=== PATIENT | male | born 1980 | race Caucasian/White ===

== ENCOUNTER 2017-02-07 22:37 | Inpatient (IN) | payer OTHER ==
[~2017-02-07] VITALS: Ht 188 cm; Wt 154.6 kg
[2017-02-07 22:40] VITALS: BP 148/71; PULSE 85; RESP 20; O2SAT 96
[2017-02-08] VITALS (12 sets, daily range): BP systolic 131–145; BP diastolic 51–83; PULSE 79–102; RESP 18–22; O2SAT 92–98
--- NOTE | 2017-02-08 00:50 | ED.REPORT ---
HPI-Dyspnea / Wheezing Date of Service Feb 08, 2017 ED Provider: Moiz Marrero MD A 36 year old male presents to the ED complaining of dyspnea that began 4 days ago. Associated symptoms include fever of 103 F, productive cough with white sputum, diarrhea, abdominal pain, and SOB. Patient reports over 30 episodes of diarrhea since onset. His symptoms have been constant since onset. He denies seasonal flu shot. Nursing Notes Stated Complaint: FEVER/COUGH/DIARRHEA Chief Complaint: Respiratory Distress Nursing Notes Reviewed: Yes Allergies: Coded Allergies: No Known Allergies (Unverified , 02/07/17) General Time Seen by MD: 00:26 Chief Complaint Other (Dyspnea) Hx Obtained From: Patient Arrived By: Walk-in Sudden in Onset?: No Onset Occurred: 4 days ago Symptom Duration: Since onset Location: : None Associated with: Reports: Cough, Fever Pertinent Negative: Pt denies other symptoms Recent Healthcare: No recent doctor visit, No recent hospitalization Past Medical History Past Medical History None reported. Past Surgical History None reported. Smoking History Never Smoker Social History Alcohol Use: Denies alcohol use Drug Use: THC Other Social History: Good social support, Local resident Ambulatory Status Independent Review of Systems Constitutional: Reports: Chills, Fever Respiratory: Reports: Prod cough, white, Shortness of breath Complete sys rev & neg: except as marked. GI: Reports: Abdominal pain, Diarrhea, Denies: Nausea, Vomiting Neurologic: Denies: Change LOC Physical Exam Initial Vital Signs Vital Signs (First) Date Time Temp Pulse Resp B/P Pulse Ox O2 Delivery O2 Flow Rate FiO2 02/07/17 22:40 38.6 85 20 148/71 96 Room Air Initial VS: Reviewed, Vital signs normal Extremities: Vascular intact, Neuro intact, No swelling, No tenderness Skin: Warm, Dry, No cyanosis Neurologic: Alert, Oriented, Nonfocal Psychiatric: Mood/affect normal, Behavior normal, Normal thought content General/Constitutional: Awake, Alert, No acute distress Appearance / Presentation: Positive: Obese Neck: Atraumatic, Supple Respiratory / Chest: Atraumatic Wheezing / Retractions: Positive: Wheeze insp/exp diffuse Rales / Rhonchi: Positive: Rhonchi diffuse RESPIRATORY/CHEST: Right lower rib tenderness Deep breaths with moderate cough Cardiovascular: Heart rate NL, Regular rhythm, Heart sounds NL CARDIO: No edema Abdomen: Atraumatic, Soft Interpretation & Diagnostics Lab Results Interpretation Result Diagram: 02/08/1710302/08/17 0104 Test 02/08/17 01:04 White Blood Count 3.6th/mm3 (3.8-10.1) Red Blood Count 4.77mil/mm3 (4.40-5.80) Hemoglobin 14.2g/dL (13.8-17.2) Hematocrit 39.7% (41.0-50.0) Mean Corpuscular Volume 83.2fL (81-100) Mean Corpuscular Hemoglobin 29.8pg (27.0-35.0) Mean Corpuscular Hemoglobin Concent 35.8% (32.0-37.0) Red Cell Distribution Width 12.5% (12.3-15.4) Platelet Count 171bil/L (150-400) Neutrophils (%) (Auto) 65.1% (40-74) Lymphocytes (%) (Auto) 22.5% (14-46) Monocytes (%) (Auto) 11.5% (4-12) Eosinophils (%) (Auto) 0% (0-5) Basophils (%) (Auto) 0.6% (0-3) Sodium Level 128mEq/L (134-144) Potassium Level 3.6mEq/L (3.5-5.2) Chloride Level 88mEq/L (97-108) Carbon Dioxide Level 23mmol/L (18-29) Blood Urea Nitrogen 12mg/dL (6-20) Creatinine 0.82mg/dL (0.76-1.27) Estimat Glomerular Filtration Rate 113mL/min (>59) Glucose Level 95mg/dL (60-99) Lactic Acid Level 0.9mmol/L (0.4-2.0) Calcium Level 8.1mg/dL (8.5-10.1) Magnesium Level 1.9mg/dL (1.6-2.6) Total Bilirubin 0.4mg/dL (0.0-1.2) Aspartate Amino Transf (AST/SGOT) 61U/L (0-50) Alanine Aminotransferase (ALT/SGPT) 38U/L (0-44) Alkaline Phosphatase 48U/L (25-150) Troponin T 0.010ug/L (0.0-0.011) Total Protein 7.0g/dL (6.4-8.4) Albumin 3.8g/dL (3.4-5.0) Lab values outside NL range: no clinical significance. Lab Results Interpretation: INFLUENZA: Negative A & B ECG Interpretation ECG Interpretation: Sinus Tachycardia Low voltage precordial leads Rate 102 Time: 01:35 Interpreted by: ED physician X-Ray Chest Interpretation Chest Xray Interpretation: IMPRESSION: Left Upper Lobe Pneumonia Interpretation / Wet Read by: Wet read ED physician Re-Eval/Medical Decision Med Decision/Clinical Course 36-year-old male with left upper lobe pneumonia and vomiting and diarrhea. He was started on antibiotics for community-acquired pneumonia. This case was discussed with Dr. Staton and he will be admitted to the hospitalist service. Re-Evaluation/Progress : Time of Eval: 03:19 Patient Status: Condition improved Re-Evaluation/Progress Note: Patient is rechecked. He is informed of his EKG results, X-ray results, lab results and diagnosis. All of the patient's questions are adressed. He understands and agrees with the treatment plan to admit. Consultation : Referral / Consult Name: Silvia Staton MD Consulted With: Hospitalist Call Returned at: 03:30 Urologist: Will see patient, Agrees with eval, Agrees with plan, Accepts admit Counseled Regarding: Diagnosis, Lab results, Need for admission Discharge & Departure Impression: Primary Impression: Pneumonia Pneumonia type: due to unspecified organism Laterality: left Lung location : upper lobe of lung Qualified Code: J18.9 - Pneumonia, unspecified organism Disposition: ADMITTED TO HOSPITAL Discharge Condition All VS Reviewed: Yes Condition: Stable Referrals: NOPCP (PCP) Derek Nair MD (Family) Jocelin Attestation Portions of this note were transcribed by Ghada Torres. I, Dr. Marrero personally performed the history, physical exam and medical decision-making; I reviewed and confirmed the accuracy of the information in the transcribed note. Signed by: Jocelin Krishna, 02/08/17 0400. copies to: Derek Nair MD, Moiz Pavon MD Feb 08, 2017 00:50 GHADA TORRES Feb 08, 2017 00:59
[2017-02-08] MEDS ORDERED: 0.9% Sodium Chloride 1,000 ML IV ONE (00:51)
[2017-02-08] MEDS ORDERED: MethylprednisoLONE Sodium Succinate 62.5 mg/mL 2 mL Inj IVPUSH ONE (00:55)
[2017-02-08] MEDS ORDERED: Albuterol 2.5 mg/3 mL Inhalation Solution NEB ONE (00:55)
[2017-02-08] MEDS ORDERED: Albuterol-Ipratropium 3 mL Inhalation Solution NEB ONE (00:55)
[2017-02-08 01:18] LABS: BASOPHILS % (AUTO) 0.6 % (0-3); EOSINOPHILS % (AUTO) 0 % (0-5); MONOCYTES % (AUTO) 11.5 % (4-12); Mean Corpuscular Hemoglobin 29.8 pg (27.0-35.0); Mean Corpuscular Volume 83.2 fL (81-100); NEUTROPHILS % (AUTO) 65.1 % (40-74); Platelet Count 171 bil/L (150-400)
[2017-02-08 01:49] LABS: TROPONIN T 0.01 ug/L (0.0-0.011)
[2017-02-08 01:55] LABS: Magnesium 1.9 mg/dL (1.6-2.6)
[2017-02-08] MEDS ORDERED: cefTRIAXone Inj 2,000 MG in Dextrose 5% Minibag Plus 50 ML IV ONE (03:25)
[2017-02-08] MEDS ORDERED: Azithromycin Inj 500 MG in Dextrose 5% w/Vial Mate 250 ML IV ONE (03:25)
[2017-02-08] MEDS ORDERED: Polyethylene Glycol (PEG) 17 Gm Powder PO PRN (04:05)
[2017-02-08] MEDS ORDERED: Ondansetron 2 mg/mL 2 mL Inj IVPUSH PRN (04:05)
[2017-02-08] MEDS ORDERED: Alum-Mag Hydrox-Simeth 30 mL Suspension PO PRN (04:05)
--- NOTE | 2017-02-08 04:23 | PCM.HPMED ---
Subjective Date of Service Feb 08, 2017 Primary Provider: Admitting Physician: Primary Care Physician: Arnoldo Attending Physician: Admit Status: From the Emergency Department, Full Admit, Remote Telemetry Chief Complaint: Cough, fevers chills, nausea vomiting diarrhea History of Present Illness: This is a 36-year-old male who 4 days ago developed cough nausea vomiting and diarrhea. He also had fevers and chills at home. He describes fever up to 103. He denies any abdominal pain. His evaluation in the emergency room includes a white count of 3.6 with 65% polys. Lactic acid is 0.9. His sodium is low at 128. Chest x-ray reveals a left upper lobe infiltrate. Patient was started on azithromycin by his primary care provider recently. EKG shows sinus tachycardia at a rate of 102. Review of Systems: Denies any urinary frequency or burning. All other review of systems are negative except for as in history of present illness. Allergies Coded Allergies: No Known Allergies (Unverified , 02/07/17) Home Medications Z-Royer PMH Morbid Obesity with BMI of 45.7 Social History Hx Alcohol Use: Yes (occasional) Hx Substance Use: Yes (marijuana) Smoking Status: Never Smoker Living Arrangement: with Family Exam Vital Signs Vital Sign - Last Date Time Temp Pulse Resp B/P Pulse Ox O2 Delivery O2 Flow Rate FiO2 02/08/17 03:57 39.1 95 18 131/51 92 Room Air Intake and Output 02/07/17 02/07/17 02/08/17 Cumulative From/Thru 15:00 23:00 07:00 02/07/17 22:40 - 02/08/17 03:58 Intake Total 1000 ml 1000 ml Balance 1000 ml 1000 ml Intake IV Total 1000 ml 1000 ml Exam Constitutional: Morbidly obese male in no acute distress Head: Normocephalic atraumatic Eyes: PERRLA DC EOMI Mouth: No lesions Neck: No adenopathy Chest: Reveals scattered expiratory wheezes Cor: Regular rate and rhythm S1-S2 Abdomen: Soft nontender bowel sounds present Extremities: No pedal edema Skin: No rashes Psych: Mood and affect are appropriate Neuro: Alert and oriented 3, motor strength is intact bilaterally Lab and Diagnostics Labs Laboratory Tests 72 Hours Test 02/08/17 01:04 White Blood Count 3.6th/mm3 (3.8-10.1) Red Blood Count 4.77mil/mm3 (4.40-5.80) Hemoglobin 14.2g/dL (13.8-17.2) Hematocrit 39.7% (41.0-50.0) Mean Corpuscular Volume 83.2fL (81-100) Mean Corpuscular Hemoglobin 29.8pg (27.0-35.0) Mean Corpuscular Hemoglobin Concent 35.8% (32.0-37.0) Red Cell Distribution Width 12.5% (12.3-15.4) Platelet Count 171bil/L (150-400) Neutrophils (%) (Auto) 65.1% (40-74) Lymphocytes (%) (Auto) 22.5% (14-46) Monocytes (%) (Auto) 11.5% (4-12) Eosinophils (%) (Auto) 0% (0-5) Basophils (%) (Auto) 0.6% (0-3) Sodium Level 128mEq/L (134-144) Potassium Level 3.6mEq/L (3.5-5.2) Chloride Level 88mEq/L (97-108) Carbon Dioxide Level 23mmol/L (18-29) Blood Urea Nitrogen 12mg/dL (6-20) Creatinine 0.82mg/dL (0.76-1.27) Estimat Glomerular Filtration Rate 113mL/min (>59) Glucose Level 95mg/dL (60-99) Lactic Acid Level 0.9mmol/L (0.4-2.0) Calcium Level 8.1mg/dL (8.5-10.1) Magnesium Level 1.9mg/dL (1.6-2.6) Total Bilirubin 0.4mg/dL (0.0-1.2) Aspartate Amino Transf (AST/SGOT) 61U/L (0-50) Alanine Aminotransferase (ALT/SGPT) 38U/L (0-44) Alkaline Phosphatase 48U/L (25-150) Troponin T 0.010ug/L (0.0-0.011) Total Protein 7.0g/dL (6.4-8.4) Albumin 3.8g/dL (3.4-5.0) Result Diagram: 02/08/1710302/08/17103 Assessment & Plan # Left upper lobe pneumonia, acute, present on admission, possible aspiration - Patient failed to by mouth azithromycin at home so will start on IV Levaquin along with IV Zosyn to cover for possibility of aspiration pneumonia - Check respiratory PCR, sputum culture and Gram stain, urine for legionella and strep pneumonia - Follow serial pro-calcitonin levels # Nausea vomiting diarrhea, acute, present on admission - Check GI PCR studies - Zofran when necessary nausea vomiting - Placed on enteric precautions #Sepsis, acute, present on admission - Possibly related to pneumonia and meets criteria by temperature greater than 38.3 WBCs less than 4000 and pulse greater than 90 - Lactic acid is normal at presentation # Morbid obesity, chronic, present on admission - Investment Banking Analyst regarding diet and weight loss - Check glucoses and hemoglobin A 1C # Hyponatremia, acute, present on admission - Most likely secondary to diarrhea and nausea vomiting so will give IV fluid repletion - Monitor daily electrolytes # DVT prophylaxis - SCDs and subcutaneous Lovenox # CODE STATUS Full code Time spent 60 minutes Silvia Staton MD Feb 08, 2017 04:23
[2017-02-08] MEDS: Piperacillin-Tazo 3.375 Gm Inj 3.375 GM in Dextrose 5% Minibag Plus 50 ML IV SCH ×3 (05:20→20:33)
[2017-02-08] MEDS: Albuterol 2.5 mg/3 mL Inhalation Solution NEB PRN ×2 (05:55→21:12)
--- NOTE | 2017-02-08 06:27 | NUR ---
Admit Admitted to 3029 from ED via stretcher. Able to ambulate on arrival. RA without c/o SOB @ rest but reports [place]. Frequent cough noted. Tele SR without c/o CP. Currently denies n/v but reports several days of n/v with last emesis on 02/07 around noon. Reports about 20-30 episodes of diarrhea per day over last several days with last BM on arrival to floor. Able to tolerate liquid intake at this time without any difficulties. IV ABO infusing per orders. No home medications per patient with no prior health hx. Droplet and enteric precautions initiated. Personal belongings at bedside per patient request. Oriented to call light use with return demonstration.
--- NOTE | 2017-02-08 07:42 | DRSVH ---
PROCEDURE: X-RAY CHEST, TWO VIEWS ([id number]) INDICATIONS: cough, left side rhonchi TECHNIQUE: 2 views of the chest were acquired. COMPARISON: None. FINDINGS: Surgical changes and devices: None. Lungs and pleura: Consolidative opacities are present within the inferior aspect of the left upper za ng. Mild patchy opacities are present at the left lung base. No pleural effusion or pneumothorax. A s mall pulmonary nodule is present at the right lung base. Mediastinum: Mediastinal contours are normal. Heart size is normal. Bones and chest wall: No suspicious bony abnormalities. Soft tissues appear unremarkable. IMPRESSION: 1. Findings suspicious for left multifocal pneumonia. Short interval followup is recommended to ensur e there is no underlying pulmonary neoplasm. 2. Right basilar pulmonary nodule. Short interval followup recommended. Dictated by: Mahi Rodriguez M.D. on 02/08/2017 at 7:39 Approved by: Mahi Rodriguez M.D. on 02/08/2017 at 7:40
[2017-02-08] MEDS ORDERED: 0.9% Sodium Chloride 250 ML ONE (08:31)
[2017-02-08] MEDS: Famotidine Inj 20 MG in IV Premix 1 EACH IV SCH ×2 (08:37→20:32)
[2017-02-08] MEDS: levoFLOXacin Inj 750 MG in IV Premix 1 EACH IV SCH (08:38)
--- NOTE | 2017-02-08 10:41 | PCM.PNMED ---
Subjective Date of Service Feb 08, 2017 Subjective - Pt seen and examined this morning. He is actively coughing with yellowish sputum production. - Also reports mild shortness of breath with is improving. - Denies any chest pain. Exam Vital Signs Vital Sign - Last Date Time Temp Pulse Resp B/P Pulse Ox O2 Delivery O2 Flow Rate FiO2 02/08/17 09:20 85 02/08/17 05:56 22 96 Room Air 02/08/17 04:46 37.5 132/66 Intake and Output 02/07/17 02/07/17 02/08/17 Cumulative From/Thru 15:00 23:00 07:00 02/07/17 22:40 - 02/08/17 06:00 Intake Total 1000 ml 1000 ml Balance 1000 ml 1000 ml Intake IV Total 1000 ml 1000 ml Exam Constitutional: Morbidly obese male in no acute distress Head: Normocephalic atraumatic Eyes: PERRLA DC EOMI Mouth: No lesions. Moist mucous membranes Neck: No adenopathy Chest: Reveals scattered expiratory wheezes, No rhonchi, Decrease breath sound at bilateral bases Cor: Regular rate and rhythm S1-S2 Abdomen: Soft nontender bowel sounds present, obese, no evidence of organomegaly. Extremities: No pedal edema Skin: No rashes Psych: Mood and affect are appropriate Neuro: Alert and oriented 3, motor strength is intact bilaterally IVs and Medications Medications Reviewed: Medications were reviewed in detail Lab and Diagnostics Result Diagram: 02/08/17 0104 02/08/17 0743 X-Rays, CTs and MRIs Chest X-ray: Lungs and pleura: Consolidative opacities are present within the inferior aspect of the left upper lung. Mild patchy opacities are present at the left lung base. No pleural effusion or pneumothorax. A small pulmonary nodule is present at the right lung base. Mediastinum: Mediastinal contours are normal. Heart size is normal. Bones and chest wall: No suspicious bony abnormalities. Soft tissues appear unremarkable. IMPRESSION: 1. Findings suspicious for left multifocal pneumonia. Short interval followup is recommended to ensure there is no underlying pulmonary neoplasm. 2. Right basilar pulmonary nodule. Short interval followup recommended. Assessment & Plan 36-year-old male who 4 days ago developed cough nausea vomiting and diarrhea. He also had fevers and chills at home. He describes fever up to 103. Admitted with impression of pneumonia. # Left upper lobe pneumonia, acute, present on admission, possible aspiration - Patient failed to by mouth azithromycin at home - Started on IV Levaquin and IV Zosyn Day # 2 - Airborne isolation, rule out TB - Check respiratory PCR, sputum culture and Gram stain, urine for legionella and strep pneumonia - Rapid flu test is negative - Procalcitonin mildly elevated. # Nausea vomiting diarrhea, acute, present on admission - Stool cultures pending - Zofran when necessary nausea vomiting - Placed on enteric precautions # Sepsis, acute, present on admission - Possibly related to pneumonia and meets criteria by temperature greater than 38.3 WBCs less than 4000 and pulse greater than 90 - Lactic acid is normal at presentation # Morbid obesity, chronic, present on admission - Surveillance Operator regarding diet and weight loss - Check glucoses and hemoglobin A 1C # Hyponatremia, acute, present on admission - Most likely secondary to diarrhea and nausea vomiting so will give IV fluid repletion - Na is improving 131 <--- 128 # DVT prophylaxis - SCDs and subcutaneous Lovenox # CODE STATUS Full code Steven Thornton MD Feb 08, 2017 10:41
--- NOTE | 2017-02-08 15:05 | NUR ---
Social Work Note: Screen Note Data & Assessment: EMR reviewed. Patient is a 36 year old male admitted on 02/08/2017 for left upper lobe pneumonia. Pt is self pay and sees no one for primary care. Pt lives in [place] with family and is independent at baseline. Pt is currently SBA in her room. No discharge needs identified at this time. SW to continue to follow if any needs arise. Plan: Anticipated discharge home via POV when medically ready. No discharge needs identified at this time. SW to continue to follow if any needs arise. Elsa Meza, HUA, ACM
[2017-02-09] VITALS (9 sets, daily range): BP systolic 130–158; BP diastolic 75–85; PULSE 78–96; RESP 16–20; O2SAT 95–99
[2017-02-09] MEDS: Piperacillin-Tazo 3.375 Gm Inj 3.375 GM in Dextrose 5% Minibag Plus 50 ML IV SCH ×2 (04:10→12:54)
--- NOTE | 2017-02-09 05:15 | NUR ---
Febrile: Pt had low grade temp, no medication administered, tolerating fine. Pt slept off/on throughout the night, pleasant and cooperative with care.
[2017-02-09 06:57] LABS: BASOPHILS % (AUTO) 1.2 % (0-3); EOSINOPHILS % (AUTO) 0 % (0-5); MONOCYTES % (AUTO) 20.7 % (4-12); Mean Corpuscular Hemoglobin 29.3 pg (27.0-35.0); Mean Corpuscular Volume 84.6 fL (81-100); NEUTROPHILS % (AUTO) 55.7 % (40-74); Platelet Count 218 bil/L (150-400)
[2017-02-09] MEDS: Famotidine Inj 20 MG in IV Premix 1 EACH IV SCH ×2 (09:17→20:52)
[2017-02-09] MEDS: levoFLOXacin Inj 750 MG in IV Premix 1 EACH IV SCH (09:18)
--- NOTE | 2017-02-09 10:16 | NUR ---
Social Work-readiness for discharge: Data:EMR reviewed. Pt is on day 1 of hospitalization for left upper lobe pneumonia per H&P. Pt is in isolation for r/o TB. Pt does not have a PCP or insurance. R[facility] to screen pt. SW provided pt with DPOA/ advanced directive paperwork, mikel care application, and healthcare exchanged information. Per RN notes, pt has been up independent in his room. No anticipated discharge needs. SW will continue to follow if needs arise. Assessment:Pt who is independent at baseline. Plan:Pt to discharge home when medically stable via POV. No anticipated discharge needs. SW will continue to follow if needs arise. ALONSO Gonzalez
--- NOTE | 2017-02-09 14:24 | PCM.PNMED ---
Subjective Date of Service Feb 09, 2017 Subjective Still coughing and having some shortness of breath, and ongoing diarrhea. No chest pain no nausea or vomiting Exam Vital Signs Vital Sign - Last Date Time Temp Pulse Resp B/P Pulse Ox O2 Delivery O2 Flow Rate FiO2 02/09/17 11:12 92 02/09/17 10:13 36.6 20 158/85 96 Room Air Intake and Output 02/08/17 02/08/17 02/09/17 Cumulative From/Thru 15:00 23:00 07:00 02/07/17 22:40 - 02/09/17 06:15 Intake Total 1794 ml 400 ml 3194 ml Output Total 4729 ml 550 ml 5279 ml Balance -2935 ml -150 ml -2085 ml Intake Oral 1794 ml 400 ml 2194 ml IV Total 1000 ml Output Urine Total 4725 ml 550 ml 5275 ml Stool Total 4 ml 4 ml Exam Constitutional: Morbidly obese male in no acute distress Head: Normocephalic atraumatic Eyes: Eyes open, conjunctiva clear, pupils equal eyes track symmetrically Neck: Trachea midline, neck supple Chest: Reveals scattered expiratory wheezes Cor: Regular rate and rhythm S1-S2, no murmur or gallop Abdomen: Soft nontender bowel sounds present, generous pannus Extremities: No pedal edema Skin: No rashes Psych: Mood and affect are appropriate Neuro: Alert and oriented 3, motor strength is intact bilaterally Lab and Diagnostics Result Diagram: 02/09/17 0635 02/09/17 0635 X-Rays, CTs and MRIs Chest X-ray: Lungs and pleura: Consolidative opacities are present within the inferior aspect of the left upper lung. Mild patchy opacities are present at the left lung base. No pleural effusion or pneumothorax. A small pulmonary nodule is present at the right lung base. Mediastinum: Mediastinal contours are normal. Heart size is normal. Bones and chest wall: No suspicious bony abnormalities. Soft tissues appear unremarkable. IMPRESSION: 1. Findings suspicious for left multifocal pneumonia. Short interval followup is recommended to ensure there is no underlying pulmonary neoplasm. 2. Right basilar pulmonary nodule. Short interval followup recommended. Assessment & Plan 36-year-old male who 4 days ago developed cough nausea vomiting and diarrhea. He also had fevers and chills at home. He describes fever up to 103. Admitted with impression of pneumonia. 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 difficile among other things - Zofran when necessary nausea vomiting - Placed on enteric precautions -Nausea and vomiting resolved 02/09 - Added Metamucil up to 3 times a day for diarrhea 02/09 #Transaminitis-likely [place] possibly alcohol related recommend outpatient follow- up no further workup for now. # Sepsis, acute, present on admission - Possibly related to pneumonia and meets criteria by temperature greater than 38.3 WBCs less than 4000 and pulse greater than 90 - Lactic acid is normal at presentation -Resolved 02/09 # Morbid obesity, chronic, present on admission - Industrial Rehabilitation Consultant regarding diet and weight loss - Check glucoses and hemoglobin A 1C # Hyponatremia, acute, present on admission - Most likely secondary to diarrhea and nausea vomiting so will give IV fluid repletion - Na is improving 131 <--- 128 -Resolved 02/09 likely dehydration # DVT prophylaxis - SCDs and subcutaneous Lovenox # CODE STATUS Full code Asif Rocha MD Feb 09, 2017 14:24
[2017-02-09] MEDS: Albuterol 2.5 mg/3 mL Inhalation Solution NEB PRN (16:43)
[2017-02-09] MEDS: Codeine-guaiFENesin 10 mL Syrup PO PRN (22:09)
[2017-02-10 00:18] VITALS: BP 125/75; PULSE 86; RESP 20; O2SAT 96
[2017-02-10 06:09] VITALS: BP 120/71; PULSE 93; RESP 20; O2SAT 96
--- NOTE | 2017-02-10 06:29 | NUR ---
Respiration Pt c/o intermittent cough,small white sputum, Codeine-Guaifenesin administered, cough slightly improved. Denies SOB. SPO2 96-97% on RA. Coarse lung sounds bilaterally, no crackles or wheezes noted. Tele: SR 90S. On droplet precaution.
[2017-02-10] MEDS: levoFLOXacin 750 mg Tablet PO SCH (08:33)
[2017-02-10] MEDS: Famotidine Inj 20 MG in IV Premix 1 EACH IV SCH ×2 (08:34→21:47)
[2017-02-10] MEDS: Codeine-guaiFENesin 10 mL Syrup PO PRN ×3 (08:34→21:48)
[2017-02-10] MEDS ORDERED: DiphenOXYlate-Atropine 2.5 mg-0.025 mg Tablet PO ONE (09:10)
[2017-02-10 09:40] VITALS: BP 114/64; PULSE 86; RESP 20; O2SAT 94
[2017-02-10 10:29] LABS: APPEARANCE,URINE CLEAR (CLEAR,HAZY); COLOR,URINE YELLOW (YELLOW)
[2017-02-10 10:30] LABS: OCCULT BLOOD,URINE NEGATIVE (NEGATIVE); PH,URINE 6.5 (5.0-8.0); UROBILINOGEN,URINE NORMAL (NORMAL)
--- NOTE | 2017-02-10 14:36 | NUR ---
Diarrhea, PO Intake Pt continues to have diarrhea. Medicated w/ lomotil as ordered. Pt requested to eat solid foods and was able to tolerate some crackers and a few bites of salad, otherwise continues with poor po intake.
--- NOTE | 2017-02-10 17:13 | PCM.PNMED ---
Subjective Date of Service Feb 10, 2017 Subjective Patient reports 20-25 episodes of diarrhea since we met yesterday. He cannot make it to the bathroom it suddenly and he is incontinent and has taken to wearing diapers. His breathing is okay his cough is better controlled and he does not have any chest pain or headache. Exam Vital Signs Vital Sign - Last Date Time Temp Pulse Resp B/P Pulse Ox O2 Delivery O2 Flow Rate FiO2 02/10/17 06:09 37.3 93 20 120/71 96 Room Air 02/09/17 16:43 8.00 Intake and Output 02/09/17 02/09/17 02/10/17 Cumulative From/Thru 15:00 23:00 07:00 02/07/17 22:40 - 02/10/17 06:46 Intake Total 1300 ml 956 ml 5450 ml Output Total 3 ml 660 ml 5942 ml Balance 1297 ml 296 ml -492 ml Intake Oral 1300 ml 800 ml 4294 ml IV Total 156 ml 1156 ml Output Urine Total 3 ml 650 ml 5928 ml Stool Total 10 ml 14 ml Exam Constitutional: Morbidly obese male in no acute distress Head: Normocephalic atraumatic Eyes: Eyes open, conjunctiva clear, pupils equal eyes track symmetrically Neck: Trachea midline, neck supple Chest: Breath sounds distant, CTA no wheezes or rhonchi auscultated Cor: Regular rate and rhythm S1-S2, no murmur or gallop Abdomen: Soft nontender bowel sounds present, generous pannus Extremities: No pedal edema Skin: No rashes Psych: Mood and affect are appropriate Neuro: Alert and oriented 3, motor strength is intact bilaterally Lab and Diagnostics Result Diagram: 02/09/1735 02/09/17 0635 X-Rays, CTs and MRIs Chest X-ray: Lungs and pleura: Consolidative opacities are present within the inferior aspect of the left upper lung. Mild patchy opacities are present at the left lung base. No pleural effusion or pneumothorax. A small pulmonary nodule is present at the right lung base. Mediastinum: Mediastinal contours are normal. Heart size is normal. Bones and chest wall: No suspicious bony abnormalities. Soft tissues appear unremarkable. IMPRESSION: 1. Findings suspicious for left multifocal pneumonia. Short interval followup is recommended to ensure there is no underlying pulmonary neoplasm. 2. Right basilar pulmonary nodule. Short interval followup recommended. Assessment & Plan 36-year-old male who 4 days ago developed cough nausea vomiting and diarrhea. He also had fevers and chills at home. He describes fever up to 103. Admitted with impression of pneumonia. 02/10 severe diarrhea as described above. Giving patient IV fluids, Metamucil and Lomotil he still may turn C. difficile positive after all the antibiotics we gave him so I will be vigilant of that and have discussed with him the potential downside of using anti-motility agents. Accu checks, telemetry were discontinued today #Severe diarrhea worsened since admission - Stool DNA completely negative no C. 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 # Sepsis, acute, present on admission - Possibly related to pneumonia and meets criteria by temperature greater than 38.3 WBCs less than 4000 and pulse greater than 90 - Lactic acid is normal at presentation -Resolved 02/09 # Morbid obesity, chronic, present on admission - Public Welfare Director regarding diet and weight loss - Check glucoses have been around 100 and hemoglobin A 1C 5.4 02/08 Accu-Cheks discontinued # Hyponatremia, acute, present on admission - Most likely secondary to diarrhea and nausea vomiting so will give IV fluid repletion - Na is improving 131 <--- 128 -Resolved 02/09 likely dehydration # DVT prophylaxis - SCDs and subcutaneous Lovenox # CODE STATUS Full code VTE Mechanical Devices: Intermittant Pneumatic CD Asif Rocha MD Feb 10, 2017 08:35
[2017-02-10 17:17] VITALS: BP 128/73; PULSE 87; RESP 20; O2SAT 96
[2017-02-10] MEDS: D5 0.9% NaCl + KCl 20 mEq/L 1,000 ML IV SCH (19:11)
[2017-02-10 20:33] VITALS: BP 130/68; PULSE 80; RESP 20; O2SAT 98
[2017-02-10] MEDS ORDERED: 0.9% Sodium Chloride 250 ML ONE (21:43)
[2017-02-10 23:46] VITALS: PULSE 90; RESP 20; O2SAT 98
[2017-02-11] MEDS: D5 0.9% NaCl + KCl 20 mEq/L 1,000 ML IV SCH ×4 (04:54→20:25)
[2017-02-11] MEDS: Codeine-guaiFENesin 10 mL Syrup PO PRN ×3 (05:01→19:43)
--- NOTE | 2017-02-11 05:08 | NUR ---
cough Pt having productive cough with cream colored sputum. Medicated pt with robitussin with codeine and tessalon shahriar for cough this shift. Call light within reach, frequent rounding.
[2017-02-11 06:06] VITALS: BP 121/77; PULSE 77; RESP 20; O2SAT 96
[2017-02-11 07:51] LABS: BASOPHILS % (AUTO) 2.2 % (0-3); EOSINOPHILS % (AUTO) 0.6 % (0-5); MONOCYTES % (AUTO) 11.5 % (4-12); Mean Corpuscular Hemoglobin 29.1 pg (27.0-35.0); Mean Corpuscular Volume 86.1 fL (81-100); NEUTROPHILS % (AUTO) 47.5 % (40-74); Platelet Count 167 bil/L (150-400)
[2017-02-11 08:23] LABS: Magnesium 2.3 mg/dL (1.6-2.6)
[2017-02-11] MEDS: levoFLOXacin 750 mg Tablet PO SCH (08:44)
[2017-02-11] MEDS: Famotidine Inj 20 MG in IV Premix 1 EACH IV SCH (08:44)
[2017-02-11 13:48] VITALS: BP 143/87; PULSE 76; RESP 20; O2SAT 96
--- NOTE | 2017-02-11 14:16 | PCM.PNMED ---
Subjective Date of Service Feb 11, 2017 Subjective Diarrhea is improving. Still having cough now bringing up sputum occasionally a little bit bloody. No chest pain, breathing is not too bad. No nausea or vomiting Exam Vital Signs Vital Sign - Last Date Time Temp Pulse Resp B/P Pulse Ox O2 Delivery O2 Flow Rate FiO2 02/11/17 13:48 36.6 76 20 143/87 96 Room Air 02/09/17 16:43 8.00 Intake and Output 02/10/17 02/10/17 02/11/17 Cumulative From/Thru 15:00 23:00 07:00 02/07/17 22:40 - 02/11/17 06:33 Intake Total 1277 ml 1403 ml 8130 ml Output Total 1004 ml 1726 ml 8672 ml Balance 273 ml -323 ml -542 ml Intake Oral 1137 ml 400 ml 5831 ml IV Total 140 ml 1003 ml 2299 ml Output Urine Total 1000 ml 1725 ml 8653 ml Stool Total 4 ml 1 ml 19 ml Exam Constitutional: Morbidly obese male in no acute distress Head: Normocephalic atraumatic Eyes: Eyes open, conjunctiva clear, pupils equal eyes track symmetrically Neck: Trachea midline, neck supple Chest: Left-sided wheezes/rhonchi moving good air s3 muscle use Cor: Regular rate and rhythm S1-S2, no murmur or gallop Abdomen: Soft nontender bowel sounds present, generous pannus Extremities: No pedal edema Skin: No rashes Psych: Mood and affect are appropriate Neuro: Alert and oriented 3, motor strength is intact bilaterally Lab and Diagnostics Result Diagram: 02/11/17 0716 02/11/17 0716 X-Rays, CTs and MRIs Chest X-ray: Lungs and pleura: Consolidative opacities are present within the inferior aspect of the left upper lung. Mild patchy opacities are present at the left lung base. No pleural effusion or pneumothorax. A small pulmonary nodule is present at the right lung base. Mediastinum: Mediastinal contours are normal. Heart size is normal. Bones and chest wall: No suspicious bony abnormalities. Soft tissues appear unremarkable. IMPRESSION: 1. Findings suspicious for left multifocal pneumonia. Short interval followup is recommended to ensure there is no underlying pulmonary neoplasm. 2. Right basilar pulmonary nodule. Short interval followup recommended. Assessment & Plan 36-year-old male who 4 days ago developed cough nausea vomiting and diarrhea. He also had fevers and chills at home. He describes fever up to 103. Admitted with impression of pneumonia. 02/10 severe diarrhea as described above. Giving patient IV fluids, Metamucil and Lomotil he still may turn C. difficile positive after all the antibiotics we gave him so I will be vigilant of that and have discussed with him the potential downside of using anti-motility agents. Accu checks, telemetry were discontinued today 02/11 still having diarrhea but stool is increasingly formed. No abdominal pain. Cough and breathing are okay. Urine output is improving now that he is on IV fluids. He may be able to be discharged 02/12. He will receive 5 days of high-dose Levaquin at that point in time. I have made him aware that he could still have C. difficile if his diarrhea does not resolve. Starting a probiotic today. #Severe diarrhea worsened since admission - Stool DNA completely negative no C. 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 # Sepsis, acute, present on admission - Possibly related to pneumonia and meets criteria by temperature greater than 38.3 WBCs less than 4000 and pulse greater than 90 - Lactic acid is normal at presentation -Resolved 02/09 # Morbid obesity, chronic, present on admission - Life Skills Coach regarding diet and weight loss - Check glucoses have been around 100 and hemoglobin A 1C 5.4 02/08 Accu-Cheks discontinued # Hyponatremia, acute, present on admission - Most likely secondary to diarrhea and nausea vomiting so will give IV fluid repletion - Na is improving 131 <--- 128 -Resolved 02/09 likely dehydration # DVT prophylaxis - SCDs and subcutaneous Lovenox # CODE STATUS Full code VTE Mechanical Devices: Intermittant Pneumatic CD Asif Rocha MD Feb 11, 2017 14:16
[2017-02-11] MEDS: DiphenOXYlate-Atropine 2.5 mg-0.025 mg Tablet PO PRN ×2 (15:07→21:15)
[2017-02-11] MEDS: Albuterol 2.5 mg/3 mL Inhalation Solution NEB PRN ×2 (15:09→19:57)
[2017-02-11 15:12] VITALS: PULSE 76; RESP 20; O2SAT 97
[2017-02-11 19:57] VITALS: PULSE 74; RESP 20; O2SAT 97
[2017-02-11 20:16] VITALS: BP 144/74; PULSE 90; RESP 18; O2SAT 93
[2017-02-12] MEDS: Codeine-guaiFENesin 10 mL Syrup PO PRN ×2 (00:05→12:11)
[2017-02-12] MEDS: Sodium Chloride LOK Flush 10 mL Syringe IVFLUSH SCH ×3 (00:05→15:49)
--- NOTE | 2017-02-12 04:56 | NUR ---
PT ACTIVITY/RESPIRATORY Pt has been up in room, tolerates activity independently. Pt did have shower tonight. Pt remains on RA, maintains adequate oxygenation. Pt continues to have cough, productive w/ creamy sputum, faint red streaks. PRN cough syrup, tessalon pearls and neb treatments administered. Continue to monitor.
[2017-02-12 05:21] VITALS: BP 127/78; PULSE 65; RESP 18; O2SAT 94
[2017-02-12] MEDS: levoFLOXacin 750 mg Tablet PO SCH (09:44)
[2017-02-12] MEDS: Albuterol 2.5 mg/3 mL Inhalation Solution NEB PRN ×2 (12:14→16:13)
[2017-02-12 12:15] VITALS: PULSE 75; RESP 18; O2SAT 96
[2017-02-12 14:16] VITALS: BP 143/78; PULSE 65; RESP 18; O2SAT 94
[2017-02-12 16:13] VITALS: PULSE 70; RESP 18; O2SAT 95
[2017-02-12 21:03] VITALS: BP 130/82; PULSE 64; RESP 18; O2SAT 97
[2017-02-13] MEDS: Sodium Chloride LOK Flush 10 mL Syringe IVFLUSH SCH ×3 (00:19→16:30)
--- NOTE | 2017-02-13 00:27 | PCM.PNMED ---
Subjective Date of Service Feb 13, 2017 Subjective Patient is still complaining of some respiratory problems. He is complaining of wheezing and shortness of breath and cough. He has no other new complaints. Exam Vital Signs Vital Sign - Last Date Time Temp Pulse Resp B/P Pulse Ox O2 Delivery O2 Flow Rate FiO2 02/12/17 21:03 36.6 64 18 130/82 97 Room Air 02/09/17 16:43 8.00 Intake and Output 02/12/17 02/12/17 02/13/17 Cumulative From/Thru 15:00 23:00 07:00 02/07/17 22:40 - 02/12/17 20:55 Intake Total 1400 ml 91145 ml Output Total 1200 ml 95174 ml Balance 200 ml -98 ml Intake Oral 1400 ml 94631 ml IV Total 4418 ml Output Urine Total 1200 ml 76974 ml Stool Total 19 ml # Voids 1 # Bowel Movements 1 Exam General: Patient is in no apparent distress HEENT: Head is atraumatic and normocephalic. Eyes: Pupils are equally round and reactive to light and accommodation. Extraocular muscles are intact. Sclera are white, anicteric. Subconjunctival mucosa is pink. Ears and nose are unremarkable. Oropharynx: There is no mucosal lesions, there is no thrush, there is no pharyngitis. Neck: Is supple, there are no nodes, or masses or tenderness. Chest: Is significant for bilateral wheezing and basilar crackles. There are no rubs or rhonchi noted Heart: Rate, rhythm is regular. There is no murmur, rub or gallop. Abdomen: Good bowel sounds are present. Abdomen is obese, soft, nontender, no organomegaly or masses were appreciated. Extremities: Are symmetrical and well perfused. There is no edema, there is no cellulitis, no rash. Neurologic: There are no focal neurological deficits. Cranial nerves II through XII are intact. There are no sensory or motor deficits. Psychiatric: Patients mood is calm and shows no sign of agitation. Genital: Deferred Rectal: Deferred Lab and Diagnostics Result Diagram: 02/11/1771502/11/17715 Microbiology Microbiology ADENOVIRUS RESPIRATORY PCR Final 02/08/17-1419 Organism 1 ADENOVIRUS ADENOVIRUS RESP PCR DETECTED TIME CALLED: 1415 DATE CALLED: 02/08/17 FLOOR/DOCTOR: AL/BO Fabian CALLED BY: VS X-Rays, CTs and MRIs PROCEDURE: X-RAY CHEST, TWO VIEWS ([id number]) INDICATIONS: cough, left side rhonchi TECHNIQUE: 2 views of the chest were acquired. COMPARISON: None. FINDINGS: Surgical changes and devices: None. Lungs and pleura: Consolidative opacities are present within the inferior aspect of the left upper lung. Mild patchy opacities are present at the left lung base. No pleural effusion or pneumothorax. A small pulmonary nodule is present at the right lung base. Mediastinum: Mediastinal contours are normal. Heart size is normal. Bones and chest wall: No suspicious bony abnormalities. Soft tissues appear unremarkable. IMPRESSION: 1. Findings suspicious for left multifocal pneumonia. Short interval followup is recommended to ensure there is no underlying pulmonary neoplasm. 2. Right basilar pulmonary nodule. Short interval followup recommended. Dictated by: Mahi Rodriguez M.D. on 02/08/2017 at 7:39 Approved by: Mahi Rodriguez M.D. on 02/08/2017 at 7:40 Assessment & Plan 36-year-old male who 4 days ago developed cough nausea vomiting and diarrhea. He also had fevers and chills at home. He describes fever up to 103. Admitted with impression of pneumonia. 02/10 severe diarrhea as described above. Giving patient IV fluids, Metamucil and Lomotil he still may turn C. difficile positive after all the antibiotics we gave him so I will be vigilant of that and have discussed with him the potential downside of using anti-motility agents. Accu checks, telemetry were discontinued today 02/11 still having diarrhea but stool is increasingly formed. No abdominal pain. Cough and breathing are okay. Urine output is improving now that he is on IV fluids. #Severe diarrhea worsened since admission - Stool DNA completely negative no C. difficile among other things - Added Metamucil up to 3 times a day for diarrhea 02/09 -Lomotil 02/10 -IV fluids 02/10 -Improving # Left upper lobe pneumonia, acute, present on admission, - Patient failed to by mouth azithromycin at home - Started on IV Levaquin and IV Zosyn Day # 2 stopped 09/11 continuing by mouth Levaquin - Airborne isolation discontinued - respiratory PCR positive only for adeno virus, sputum culture and Gram stain pending, - Rapid flu test is negative - We will repeat chest x-ray in a.m. I am concerned about pulmonary nodules may consider CT scan of the chest depending on repeat chest x-ray findings. # Nausea vomiting, present on admission - Zofran when necessary nausea vomiting - Placed on enteric precautions -Nausea and vomiting resolved 02/09 # Transaminitis-likely [place] possibly alcohol related recommend outpatient follow -up no further workup for now. # Sepsis, acute, present on admission - Possibly related to pneumonia and meets criteria by temperature greater than 38.3 WBCs less than 4000 and pulse greater than 90 - Lactic acid is normal at presentation - Resolved 02/09 # Morbid obesity, chronic, present on admission - Trimmer Tailer regarding diet and weight loss - Check glucoses have been around 100 and hemoglobin A 1C 5.4 02/08 Accu-Cheks discontinued # Hyponatremia, acute, present on admission - Most likely secondary to diarrhea and nausea vomiting so will give IV fluid repletion - Na is improving 131 <--- 128 - Resolved 02/09 likely dehydration # DVT prophylaxis - SCDs and subcutaneous Lovenox # CODE STATUS Full code Pain Evaluation: Adequate Pain Control GI Prophylaxis: H2 amalia VTE Prophylaxis: Sub-Q Enoxaparin VTE Mechanical Devices: Intermittant Pneumatic CD Resuscitation Status: CPR: Attempt Resuscitation Rickey Lucas MD Feb 13, 2017 00:27
[2017-02-13 05:45] VITALS: PULSE 64; RESP 18; O2SAT 97
[2017-02-13 06:29] VITALS: BP 132/78; PULSE 65; RESP 18; O2SAT 97
--- NOTE | 2017-02-13 06:29 | NUR ---
Appetite / BM indicates appetite has returned, last BM still partially diarrhea without the urgency noted before that required wearing a brief.
[2017-02-13 07:14] LABS: BASOPHILS % (AUTO) 0.8 % (0-3); EOSINOPHILS % (AUTO) 5.1 % (0-5); MONOCYTES % (AUTO) 13.9 % (4-12); Mean Corpuscular Hemoglobin 29.6 pg (27.0-35.0); NEUTROPHILS % (AUTO) 53.9 % (40-74); Platelet Count 249 bil/L (150-400)
[2017-02-13 07:45] LABS: Magnesium 2.2 mg/dL (1.6-2.6)
[2017-02-13] MEDS: levoFLOXacin 750 mg Tablet PO SCH (09:13)
[2017-02-13 09:37] VITALS: PULSE 67; RESP 20; O2SAT 98
--- NOTE | 2017-02-13 10:30 | DRSVH ---
PROCEDURE: X-RAY CHEST, TWO VIEWS ([id number]) INDICATIONS: Follow up for Pneumlnia/Pulmonary nodules TECHNIQUE: 2 views of the chest were acquired. COMPARISON: [facility], CR, XR CHEST 2VW, 02/08/2017, 1:21. FINDINGS: Surgical changes and devices: None. Lungs and pleura: Persistent airspace opacity within the mid left lung and left lung base not signifi cantly changed. Lungs otherwise are clear. Mediastinum: Mediastinal contours are normal. Heart size is normal. Bones and chest wall: No suspicious bony abnormalities. Soft tissues appear unremarkable. IMPRESSION: Persistent multifocal opacities in the left lung not significantly changed. Underlying n eoplasm cannot be excluded and noncontrast chest CT scan is recommended. Dr. Lucas given results at 0905 hrs. 02/13/2017. Dictated by: Tad Schulte [facility] Interpreted: Flor Arreaga MD on 02/13/2017 at 10:28 Transcribed by: MACIEL on 02/13/2017 at 10:30 Approved by: Flor Arreaga MD, PhD on 02/13/2017 at 16:57
[2017-02-13 14:11] VITALS: BP 132/79; PULSE 76; RESP 20; O2SAT 97
--- NOTE | 2017-02-13 14:40 | DRSVH ---
PROCEDURE: CT CHEST WITHOUT CONTRAST ([id number]) INDICATIONS: Possible SHERYL Mass TECHNIQUE: Noncontrast 5 mm thick sections acquired from the pulmonary apices to the posterior costophrenic angl es. 7 mm thick coronal and sagittal MIP reformats were then acquired. For radiation dose reduction, the following was used: automated exposure control, adjustment of mA and/or kV according to patient size. COMPARISON: None. FINDINGS: Image quality: Excellent. Lungs and pleura: There is rounded air space density within the left upper lobe posterolaterally span rosy roughly 72 mm. Moderate patchy air space opacity within the left lower lobe is present. Mild pat cedric airspace opacity within the right middle lobe posteriorly is present.. No pleural effusions or p neumothorax. Central and peripheral airways are patent and normal in caliber. Mediastinum: Heart size is normal. No pericardial effusion. No mediastinal adenopathy by size crit eria. Thoracic aorta and central pulmonary arteries are normal in size. Esophagus is normal in [place]. No hiatal hernia. Bones and chest wall: No suspicious bony lesions. No vertebral body compression fractures. No axil jeniffer or supraclavicular adenopathy by size criteria. Thyroid gland is within normal limits on noncon trast imaging. Abdomen: Visualized upper abdominal solid organs and bowel loops appear normal in the absence of con trast. IMPRESSION: 1. Multifocal left lung pneumonia, as seen by plain film examination. Continued plain film surveillan ce is recommended to ensure resolution, and to exclude underlying malignancy. Dictated by: Bill Plascencia M.D. on 02/13/2017 at 14:38 Approved by: Bill Plascencia M.D. on 02/13/2017 at 14:39
--- NOTE | 2017-02-13 14:50 | NUR ---
Social Work: Continued d/c planning Data: Pt is on day 5 of hospitalization. EMR reviewed. Pt discussed in rounds. MD states pt likely to d/c in 1-2 days. Pt to have chest CT done today. Likely no d/c planning needs at this time. KENNEL KEEPER will continue to follow. Assessment: Pt who is independent at baseline. Plan: Pt will d/c home via POV when medically stable, likely in 1-2 days per MD. Likely no d/c planning needs at this time. KENNEL KEEPER will continue to follow. ALONSO Callejas
--- NOTE | 2017-02-13 18:47 | NUR ---
Cough/Lungs Patient continues to have a productive cough. Sputum flecked with red. Lung sounds diminished. Crackles in Lt base with expiratory wheeze. Patient reporting "feeling much better".
[2017-02-13 20:55] VITALS: BP 143/82; PULSE 72; RESP 20; O2SAT 97
--- NOTE | 2017-02-13 21:45 | PCM.PNMED ---
Subjective Date of Service Feb 13, 2017 Subjective Patient is feeling a little bit better today. He has no other new complaints. He still feels discomfort in his left upper chest and is still coughing. Exam Vital Signs Vital Sign - Last Date Time Temp Pulse Resp B/P Pulse Ox O2 Delivery O2 Flow Rate FiO2 02/13/17 20:55 36.9 72 20 143/82 97 Room Air 02/09/17 16:43 8.00 Intake and Output 02/12/17 02/12/17 02/13/17 Cumulative From/Thru 15:00 23:00 07:00 02/07/17 22:40 - 02/12/17 20:55 Intake Total 1400 ml 21496 ml Output Total 1200 ml 24702 ml Balance 200 ml -98 ml Intake Oral 1400 ml 30692 ml IV Total 4418 ml Output Urine Total 1200 ml 67104 ml Stool Total 19 ml # Voids 1 # Bowel Movements 1 Exam General: Patient is in no apparent distress HEENT: Head is atraumatic and normocephalic. Eyes: Pupils are equally round and reactive to light and accommodation. Extraocular muscles are intact. Sclera are white, anicteric. Subconjunctival mucosa is pink. Ears and nose are unremarkable. Oropharynx: There is no mucosal lesions, there is no thrush, there is no pharyngitis. Neck: Is supple, there are no nodes, or masses or tenderness. Chest: Is significant for wheezing and crackles. There are no rubs or rhonchi noted Heart: Rate, rhythm is regular. There is no murmur, rub or gallop. Abdomen: Good bowel sounds are present. Abdomen is obese, soft, nontender, no organomegaly or masses were appreciated. Extremities: Are symmetrical and well perfused. There is no edema, there is no cellulitis, no rash. Neurologic: There are no focal neurological deficits. Cranial nerves II through XII are intact. There are no sensory or motor deficits. Psychiatric: Patients mood is calm and shows no sign of agitation. Genital: Deferred Rectal: Deferred Lab and Diagnostics Result Diagram: 02/13/17 0654 02/13/17 0654 Microbiology Microbiology [facility] RESP[facility]AT[facility] PCR Final 02/08/17-1419 Organism 1 AD[facility]US [facility] RESP PCR DETECTED TIME CALLED: 1415 DATE CALLED: 02/08/17 FLOOR/DOCTOR: AL/BO Fabian CALLED BY: VS X-Rays, CTs and MRIs PROCEDURE: X-RAY CHEST, TWO VIEWS ([id number]) INDICATIONS: cough, left side rhonchi TECHNIQUE: 2 views of the chest were acquired. COMPARISON: None. FINDINGS: Surgical changes and devices: None. Lungs and pleura: Consolidative opacities are present within the inferior aspect of the left upper lung. Mild patchy opacities are present at the left lung base. No pleural effusion or pneumothorax. A small pulmonary nodule is present at the right lung base. Mediastinum: Mediastinal contours are normal. Heart size is normal. Bones and chest wall: No suspicious bony abnormalities. Soft tissues appear unremarkable. IMPRESSION: 1. Findings suspicious for left multifocal pneumonia. Short interval followup is recommended to ensure there is no underlying pulmonary neoplasm. 2. Right basilar pulmonary nodule. Short interval followup recommended. Dictated by: Mahi Rodriguez M.D. on 02/08/2017 at 7:39 Approved by: Mahi Rodriguez M.D. on 02/08/2017 at 7:40 Assessment & Plan The patient is a 36-year-old male who 4 days prior to admission developed cough , nausea vomiting and diarrhea. He also had fevers and chills at home. He described fever up to 103. Admitted with impression of pneumonia. and severe diarrhea as described above. #Severe diarrhea worsened since admission - Stool DNA completely negative no C. difficile among other things - Added Metamucil up to 3 times a day for diarrhea 02/09 - Lomotil added on 02/10 when necessary - IV fluids started on 02/10 - Improving # Left upper lobe pneumonia, acute, present on admission, - Patient failed to by mouth azithromycin at home - Started on IV Levaquin and IV Zosyn Day # 2 stopped 09/11. Patient is now continuing by mouth Levaquin and feels better overall. - Airborne isolation discontinued - The respiratory PCR positive only for adeno virus, sputum culture and Gram stain pending, - Rapid flu test is negative - A repeat chest x-ray this morning showed no improvement in the left upper lobe infiltrate and CT scan of the chest was recommended by the radiologist. CT findings are as follows: "Multifocal left lung pneumonia, as seen by plain film examination. Continued plain film surveillance is recommended to ensure resolution, and to exclude underlying malignancy". # Nausea vomiting, present on admission - Zofran when necessary nausea vomiting - Placed on enteric precautions - Nausea and vomiting resolved 02/09 # Transaminitis-likely [place] possibly alcohol related recommend outpatient follow -up no further workup for now. # Sepsis, acute, present on admission - Possibly related to pneumonia and meets criteria by temperature greater than 38.3 WBCs less than 4000 and pulse greater than 90 - Lactic acid is normal at presentation - Resolved 02/09 # Morbid obesity, chronic, present on admission - Agent Broker regarding diet and weight loss - Check glucoses have been around 100 and hemoglobin A 1C 5.4 02/08 Accu-Cheks discontinued # Hyponatremia, acute, present on admission - Most likely secondary to diarrhea and nausea vomiting so will give IV fluid repletion - Na is improving 131 <--- 128 - Resolved 02/09 likely dehydration # DVT prophylaxis - SCDs and subcutaneous Lovenox # CODE STATUS Full code Disposition: Suspect patient may be able to be discharged in next 24-48 hours. Pain Evaluation: Adequate Pain Control GI Prophylaxis: H2 amalia VTE Prophylaxis: Sub-Q Enoxaparin VTE Mechanical Devices: Intermittant Pneumatic CD Resuscitation Status: CPR: Attempt Resuscitation Rickey Lucas MD Feb 13, 2017 21:45
--- NOTE | 2017-02-14 00:09 | NUR ---
IV access IV was D/C'd by patient who is requesting we leave it out. Paged MD with request.
[2017-02-14] MEDS: Sodium Chloride LOK Flush 10 mL Syringe IVFLUSH SCH ×2 (00:10→08:18)
[2017-02-14 04:37] VITALS: BP 149/87; PULSE 64; RESP 20; O2SAT 96
[2017-02-14 06:20] LABS: BASOPHILS % (AUTO) 1.1 % (0-3); MONOCYTES % (AUTO) 11.6 % (4-12); Mean Corpuscular Hemoglobin 29.3 pg (27.0-35.0); Mean Corpuscular Volume 85.9 fL (81-100); Platelet Count 318 bil/L (150-400)
[2017-02-14 06:38] LABS: Magnesium 2.2 mg/dL (1.6-2.6)
[2017-02-14 07:40] LABS: ERYTHROCYTE SEDIMENTATION RATE 34 mm/hr (0-15)
[2017-02-14 07:48] VITALS: PULSE 57; RESP 18; O2SAT 97
[2017-02-14] MEDS: Albuterol 2.5 mg/3 mL Inhalation Solution NEB PRN (07:48)
[2017-02-14] MEDS: levoFLOXacin 750 mg Tablet PO SCH (08:18)
--- NOTE | 2017-02-14 11:44 | PCM.DIMED ---
Discharge Instructions Date of Service Feb 14, 2017 Dates of Hospitalization Feb 08, 2017 at 04:26 Discharge Diagnosis Discharge Diagnosis Adenovirus with Left Upper Lobe Bacterial Pneumonia and Gastroenteritis Diet No restrictions Activity No restrictions Call your provider Fever or Chills, Shortness of breath, Bleeding, Chest pain, Vomitting, Excessive diarrhea, Weakness (unilateral) Patient Instructions Follow-up Provider: [facility] Follow-up with PCP in: 2 weeks (F) Rickey Lucas MD Feb 14, 2017 11:44
[2017-02-14] MEDS ORDERED: LEVO750T9 PO (11:47)
[2017-02-14] MEDS ORDERED: Lactobacillus Acidophilus PO (11:47)
[2017-02-14] MEDS ORDERED: BENZ100C8 PO (11:47)
--- NOTE | 2017-02-14 11:53 | NUR ---
Social Work: Discharge Data: Pt is on day 6 of hospitalization. EMR reviewed. D/C orders are in. No d/c planning needs at this time. GRINDER CHIPPER will continue to follow if needs arise. Assessment: Pt who is independent at baseline. Plan: Pt will d/c home via POV today. No d/c planning needs at this time. GRINDER CHIPPER will continue to follow if needs arise. ALONSO Callejas
--- NOTE | 2017-02-14 12:50 | NUR ---
Discharge Patient ambulated from unit, accompanied by family. Patient alert and oriented. Patient denied chest discomfort, shortness of breath, nausea, abdominal discomfort or pain. Patient reporting continued productive cough, but felling "so much better". Oxygen saturation, nutritional intake and out put adequate. Discharge instructions/medications reviewed with patient prior to discharge. All questions addressed. Discharge instructions and patient belongings in hand. Prescription in hand, and electronically transmitted to [facility] Farah in [place].
--- NOTE | 2017-02-14 22:57 | PCM.DC.MED ---
Discharge Summary Date of Service Feb 14, 2017 Dates of Hospitalization Date of Hospital Admission Feb 08, 2017 at 04:26 Date of Discharge: Feb 14, 2017 Providers: Admitting Physician: Slivia Staton MD Primary Care Physician: Arnoldo Attending Physician: Silvia Staton MD Diagnosis at Time of Discharge Diagnosis at Time of Discharge Adenovirus with Left Upper Lobe Bacterial Pneumonia and Gastroenteritis Procedures XRay, CTs & MRIs PROCEDURE: X-RAY CHEST, TWO VIEWS ([id number]) INDICATIONS: cough, left side rhonchi TECHNIQUE: 2 views of the chest were acquired. COMPARISON: None. FINDINGS: Surgical changes and devices: None. Lungs and pleura: Consolidative opacities are present within the inferior aspect of the left upper lung. Mild patchy opacities are present at the left lung base. No pleural effusion or pneumothorax. A small pulmonary nodule is present at the right lung base. Mediastinum: Mediastinal contours are normal. Heart size is normal. Bones and chest wall: No suspicious bony abnormalities. Soft tissues appear unremarkable. IMPRESSION: 1. Findings suspicious for left multifocal pneumonia. Short interval followup is recommended to ensure there is no underlying pulmonary neoplasm. 2. Right basilar pulmonary nodule. Short interval followup recommended. Dictated by: Mahi Rodriguez M.D. on 02/08/2017 at 7:39 Approved by: Mahi Rodriguez M.D. on 02/08/2017 at 7:40 Brief History This is a 36-year-old male who 4 days ago developed cough nausea vomiting and diarrhea. He also had fevers and chills at home. He describes fever up to 103. He denies any abdominal pain. His evaluation in the emergency room includes a white count of 3.6 with 65% polys. Lactic acid is 0.9. His sodium is low at 128. Chest x-ray reveals a left upper lobe infiltrate. Patient was started on azithromycin by his primary care provider recently. EKG shows sinus tachycardia at a rate of 102. Patient was admitted to the hospital service for further evaluation and treatment. Hospital Course The patient is a 36-year-old male who 4 days prior to admission developed cough , nausea vomiting and diarrhea. He also had fevers and chills at home. He described fever up to 103. Admitted with impression of pneumonia. and severe diarrhea as described above. Patient was admitted to the hospitalist service for further evaluation and treatment. #Severe diarrhea worsened initially after admission and has now improved. - Stool DNA completely negative no C. difficile among other things - Added Metamucil up to 3 times a day for diarrhea 02/09 - Lomotil added on 02/10 when necessary - IV fluids started on 02/10 - Improving # Left upper lobe pneumonia, acute, present on admission, - Patient failed to by mouth azithromycin at home - Started on IV Levaquin and IV Zosyn Day # 2 stopped 09/11. Patient is now continuing by mouth Levaquin and feels better overall. - Airborne isolation discontinued - The respiratory PCR positive only for adeno virus, sputum culture and Gram stain were unremarkable, - Rapid flu test is negative - A repeat chest x-ray this morning showed no improvement in the left upper lobe infiltrate and CT scan of the chest was recommended by the radiologist. CT findings are as follows: "Multifocal left lung pneumonia, as seen by plain film examination. Continued plain film surveillance is recommended to ensure resolution, and to exclude underlying malignancy". # Nausea vomiting, present on admission - Zofran when necessary nausea vomiting - Placed on enteric precautions - Nausea and vomiting resolved 02/09 # Transaminitis-likely [place] possibly alcohol related recommend outpatient follow -up no further workup for now. # Sepsis, acute, present on admission - Possibly related to pneumonia and meets criteria by temperature greater than 38.3 WBCs less than 4000 and pulse greater than 90 - Lactic acid is normal at presentation - Resolved 02/09 # Morbid obesity, chronic, present on admission - Pit Hoist Operator regarding diet and weight loss - Check glucoses have been around 100 and hemoglobin A 1C 5.4 02/08 Accu-Cheks discontinued # Hyponatremia, acute, present on admission now resolved - Most likely secondary to diarrhea and nausea vomiting so will give IV fluid repletion - Na is improving 138 <--- 128 - Resolved and likely contrary to dehydration. # DVT prophylaxis - SCDs and subcutaneous Lovenox # CODE STATUS Full code Disposition: Patient is feeling much better today and will be discharged home today. Exam Vital Signs (Last) Date Time Temp Pulse Resp B/P Pulse Ox O2 Delivery O2 Flow Rate FiO2 02/14/17 07:48 57 18 97 Room Air 02/14/17 04:37 36.4 149/87 02/09/17 16:43 8.00 Exam General: Patient is in no apparent distress HEENT: Head is atraumatic and normocephalic. Eyes: Pupils are equally round and reactive to light and accommodation. Extraocular muscles are intact. Sclera are white, anicteric. Subconjunctival mucosa is pink. Ears and nose are unremarkable. Oropharynx: There is no mucosal lesions, there is no thrush, there is no pharyngitis. Neck: Is supple, there are no nodes, or masses or tenderness. Chest: Is significant for wheezing and crackles. There are no rubs or rhonchi noted Heart: Rate, rhythm is regular. There is no murmur, rub or gallop. Abdomen: Good bowel sounds are present. Abdomen is obese, soft, nontender, no organomegaly or masses were appreciated. Extremities: Are symmetrical and well perfused. There is no edema, there is no cellulitis, no rash. Neurologic: There are no focal neurological deficits. Cranial nerves II through XII are intact. There are no sensory or motor deficits. Psychiatric: Patients mood is calm and shows no sign of agitation. Genital: Deferred Rectal: Deferred Test 02/08/17 01:04 02/08/17 07:43 02/10/17 06:53 02/10/17 09:45 Lactic Acid Level 0.9mmol/L (0.4-2.0) Troponin T 0.010ug/L (0.0-0.011) Hemoglobin A1c 5.4% (4.8-5.6) Hold Purple Top Tube Received (Received) Hold [place] Top Tube Received (Received) Urine Legionella pneumophilia Ag Negative (Negative) Test 02/10/17 10:05 02/14/17 05:40 Urine Color Yellow (YELLOW) Urine Appearance Clear (CLEAR,HAZY) Urine pH 6.5 (5.0-8.0) Urine Specific [place] 1.020 (1.003-1.035) Urine Protein Tracemg/dL (NEG,TRACE) Urine Glucose (UA) Negativemg/dL (NEGATIVE) Urine Ketones Negativemg/dL (NEGATIVE) Urine Occult Blood Negative (NEGATIVE) Urine Nitrite Negative (NEGATIVE) Urine Bilirubin Negative (NEGATIVE) Urine Urobilinogen Normalmg/dL (NORMAL) Urine Leukocyte Esterase Negative (NEGATIVE) Urine RBC 0-2/hpf (0-2) Urine WBC 0-5/hpf (0-5) Urine Epithelial Cells Occasional/hpf (NONE-MOD) Urine Crystals None seen (NONE SEEN) Urine Bacteria None/hpf (NONE-FEW) Urine Hyaline Casts None/lpf (NONE) Urine Granular Casts None seen (NONE SEEN) Urine Waxy Casts None seen (NONE SEEN) Urine Red Blood Cell Casts None seen (NONE SEEN) Urine White Blood Cell Casts None seen (NONE SEEN) Urine Mucus None seen (None Seen) Urine Trichomonas None seen (NONE SEEN) Urine Yeast None (NONE SEEN) Urinalysis Comment None Urine Culture Reflexed Not indicated White Blood Count 7.0th/mm3 (3.8-10.1) Red Blood Count 4.47mil/mm3 (4.40-5.80) Hemoglobin 13.1g/dL (13.8-17.2) Hematocrit 38.4% (41.0-50.0) Mean Corpuscular Volume 85.9fL (81-100) Mean Corpuscular Hemoglobin 29.3pg (27.0-35.0) Mean Corpuscular Hemoglobin Concent 34.1% (32.0-37.0) Red Cell Distribution Width 12.5% (12.3-15.4) Platelet Count 318bil/L (150-400) Neutrophils (%) (Auto) 55.0% (40-74) Lymphocytes (%) (Auto) 25.1% (14-46) Monocytes (%) (Auto) 11.6% (4-12) Eosinophils (%) (Auto) 4.0% (0-5) Basophils (%) (Auto) 1.1% (0-3) Erythrocyte Sedimentation Rate 34mm/hr (0-15) Sodium Level 138mEq/L (134-144) Potassium Level 4.6mEq/L (3.5-5.2) Chloride Level 101mEq/L (97-108) Carbon Dioxide Level 25mmol/L (18-29) Blood Urea Nitrogen 7mg/dL (6-20) Creatinine 0.65mg/dL (0.76-1.27) Estimat Glomerular Filtration Rate 148mL/min (>59) Glucose Level 100mg/dL (60-99) Calcium Level 8.9mg/dL (8.5-10.1) Magnesium Level 2.2mg/dL (1.6-2.6) Total Bilirubin 0.5mg/dL (0.0-1.2) Aspartate Amino Transf (AST/SGOT) 82U/L (0-50) Alanine Aminotransferase (ALT/SGPT) 119U/L (0-44) Alkaline Phosphatase 46U/L (25-150) C-Reactive Protein 0.5mg/dL (0.0-0.5) Total Protein 6.9g/dL (6.4-8.4) Albumin 3.7g/dL (3.4-5.0) Procalcitonin 0.04ng/mL (0.00-0.08) Microbiology Results Microbiology [facility] RESP[facility] PCR Final 02/08/17-141 Organism 1 ADENOVIRUS ADENOVIRUS RESP PCR DETECTED TIME CALLED: 1415 DATE CALLED: 02/08/17 FLOOR/DOCTOR: AL/BO Fabian CALLED BY: VS Discharge Medications Discharge Medications ([Lactobacillus Acidophilus]) 1 TABLET TABLET 2 TABLET PO PCHS Prescribed by: MARY LUCAS MD Levofloxacin (Levaquin) 750 Mg Tablet 750 MG PO DAILYAC Prescribed by: MARY LUCAS MD As needed Benzonatate (Benzonatate) 100 Mg Capsule 100 MG PO TID PRN PRN For Cough Prescribed by: MARY LUCAS MD Followup Plan Discharge Diet: No restrictions Discharge Activity: No restrictions Follow-up Provider: [facility] Follow-up with PCP in: 2 weeks (F) Time spent Time spent on discharging this patient was greater than 35 minutes, over half of which was involved in counseling and coordination of care. Rickey Lucas MD Feb 14, 2017 22:57
== END 2017-02-14 12:45 | disposition home or self-care (01) | DRG 871 ==
LOC: EDBD 22:37 → SED 22:37 → MPC 02-08 04:26
PROVIDERS: ADMIT Specialist; ATTEND Specialist
DX: A41.9 Sepsis, unspecified organism (principal); J12.0 Adenoviral pneumonia; E87.1 Hypo-osmolality and hyponatremia; Z68.42 Body mass index [BMI] 45.0-49.9, adult; K52.9 Noninfective gastroenteritis and colitis, unspecified; E66.01 Morbid (severe) obesity due to excess calories; R74.0 Nonspecific elevation of levels of transaminase and lactic acid dehydrogenase [LDH]